=== PATIENT | female | born 1930 | race Caucasian/White ===

== ENCOUNTER → 2018-11-14 | Outpatient (CLI) | payer OTHER ==
[~2018-11-14] MED LIST: ACET325 PO; AMOX500 PO; Acidophilus La100 GM PO; Amaryl1 MG PO; Augmentin 875-1 EACH PO; DULO30 PO; DULO60; ELIQUIS2.5 MG PO; FLONASE ALLERG9.9 ML NS; FURO40 PO; GLIM2 PO; HYDACE5 PO; HYDR1TAB94 PO; LANOXIN250 MCG PO; LEVOFLOXACIN750 MG PO; MESA400ER PO; METF500 PO; METO25ER PO; METO50ER PO; Omeprazole20 M1; Omeprazole20 M1 PO; PREG200 PO; PREG25 PO; PROACE100 PO; SPIR25 PO; WARF5 PO
== END | disposition home or self-care (01) ==
LOC: PLD 07:00 → LAB SHORT 07:00
DX: B07.9 Viral wart, unspecified (principal)
CPT/HCPCS: 88305